=== PATIENT | female | born 1975 | race Caucasian/White ===

== ENCOUNTER 2016-07-13 10:58 | Emergency (ER) | payer BC ==
[~2016-07-13] VITALS: Ht 152.4 cm; Wt 52.2 kg
[2016-07-13 11:13] VITALS: BP 131/77; PULSE 88; RESP 18; TEMP 98.3; O2SAT 99
--- NOTE | 2016-07-13 11:15 | NUR ---
Patient to ER bed 06 to gown for evaluation. Side rails up.
--- NOTE | 2016-07-13 11:26 | NUR ---
pt c/o vaginal spotting since last night. approx 3 months .
--- NOTE | 2016-07-13 11:30 | NUR ---
ER at bedside examining patient.
--- NOTE | 2016-07-13 11:31 | NUR ---
transported to ultrasound via [facility]
[2016-07-13 11:38] LABS: BILIRUBIN,URINE NEGATIVE (NEGATIVE); BLOOD, URINE 2+ (NEGATIVE); CLARITY/URINE CLEAR (CLEAR); COLOR,URINE YELLOW (YELLOW); GLUCOSE,URINE NEGATIVE (NEGATIVE); KETONES,URINE NEGATIVE (NEGATIVE); LEUKOCYTE ESTERASE ,URINE NEGATIVE (NEGATIVE); NITRITE, URINE NEGATIVE (NEGATIVE); PROTEIN URINE NEGATIVE (NEGATIVE); UROBILINOGEN,URINE 0.2 (0.2-1.0)
[2016-07-13 11:51] LABS: CALCIUM 8.9 mg/dL (8.4-11.0); CREATININE 0.65 mg/dL (0.55-1.30); POTASSIUM 3.7 mmol/L (3.5-5.1)
[2016-07-13 11:54] LABS: BACTERIA,URINE FEW /HPF (None Seen); MUCUS,URINE None Seen /LPF (None Seen); RBC,URINE 0-3 /HPF (0-3); WBC,URINE 0-3 /HPF (0-3)
[2016-07-13 12:06] LABS: PROTHROMBIN TIME 11.2 SECS (9.5-12.5)
[2016-07-13 12:17] LABS: ALBUMIN 3.7 g/dL (3.4-4.8); TOTAL BILIRUBIN 0.2 mg/dL (0.0-1.0); TOTAL PROTEIN, SERUM 7.6 g/dL (6.4-8.3)
[2016-07-13 13:22] LABS: BASOPHILS % (AUTO) 0.4 % (0.0-2.0); EOSINOPHILS # (AUTO) 0.1 K/uL (0.0-0.4); EOSINOPHILS % (AUTO) 0.7 % (0.0-4.0); HEMATOCRIT 37.3 % (36-48); HEMOGLOBIN 12.4 g/dL (12.0-16.0); LYMPHOCYTES # (AUTO) 1.2 K/uL (1.0-5.5); LYMPHOCYTES % (AUTO) 12.1 % (20.5-51.5); MEAN CORPUSCULAR HEMOGLOBIN 28 pg (27-31); MEAN CORPUSCULAR HGB CONC 33 % (32-36); MEAN CORPUSCULAR VOLUME 85 fL (79.0-98.0); MONOCYTES # (AUTO) 0.6 K/uL (0.0-1.0); MONOCYTES % (AUTO) 5.8 % (1.7-9.3); NEUTROPHILS # (AUTO) 8.3 K/uL (1.8-7.7); PLATELET COUNT (AUTO) 192 K/uL (130-430); RED BLOOD CELL COUNT(AUTO) 4.38 MIL/uL (4.2-6.2); RED CELL DISTRIBUTION WIDTH 14.3 % (9.0-15.0); WHITE BLOOD COUNT (AUTO) 10.2 K/uL (4.8-10.8)
--- NOTE | 2016-07-13 13:50 | NUR ---
Patient given written and verbal discharge instructions and verbalizes understanding. ER MD discussed with patient the results and treatment provided. Given copies of tests performed in ER. Patient in stable condition. ID arm band removed. no active bleeding. Patient educated on pain management and to follow up with PMD. Pain Scale 0/10 . Opportunity for questions provided and answered.
[2016-07-13 13:55] VITALS: BP 128/77; PULSE 88; RESP 18; TEMP 98.3; O2SAT 99
== END 2016-07-13 13:50 | disposition home or self-care (01) ==
LOC: SED 10:58
DX: O36.4XX0 Maternal care for intrauterine death, not applicable or unspecified (principal); Z3A.12 12 weeks gestation of pregnancy
CPT/HCPCS: 36415; 76801; 76817; 80048; 80053; 81000-TC; 81025; 84702-TC; 85025; 85610-TC; 85730-TC; 86900; 86901; 99285

== ENCOUNTER 2017-08-16 12:45 | Emergency (ER) | payer BC ==
[~2017-08-16] VITALS: Ht 152.4 cm; Wt 51.3 kg
[2017-08-16 13:15] VITALS: BP_SYST 124
[2017-08-16] MEDS ORDERED: KETOROLAC TROMETHAMINE 60 MG/2 ML VIAL IM ONE (15:45)
[2017-08-16] MEDS ORDERED: traMADol HCL HCL 50 MG TABLET (ULTRAM) PO ONE (16:45)
[2017-08-16] MEDS ORDERED: LORazepam 1 MG TABLET PO ONE (17:15)
[2017-08-16 18:54] VITALS: BP_SYST 125
== END 2017-08-16 18:54 | disposition home or self-care (01) ==
LOC: SED 12:45
DX: F41.9 Anxiety disorder, unspecified (principal); R03.0 Elevated blood-pressure reading, without diagnosis of hypertension; G89.29 Other chronic pain; R10.84 Generalized abdominal pain; Z98.890 Other specified postprocedural states
CPT/HCPCS: 70450-TC; 74018; 99284; J1885